=== PATIENT | male | born 1990 | race Caucasian/White ===

== ENCOUNTER 2022-05-05 18:45 | Emergency (ER) | payer MEDICAID ==
[~2022-05-05] VITALS: Ht 190.5 cm; Wt 113.4 kg
[2022-05-05] MEDS ORDERED: NACL 0.9% 1,000 ML IV ONE (19:00)
[2022-05-05] MEDS ORDERED: ACETAMINOPHEN 500 MG TABLET PO ONE (19:00)
[2022-05-05 19:05] VITALS: BP_SYST 6
--- NOTE | 2022-05-05 19:52 | NUR ---
Placed in room 4 . Placed on traffic monitor specialist, blood pressure machine and pulse oximeter. To gown for exam. Side rails up. Report given to Aureliano BARRON (lyle).
[2022-05-05 20:14] LABS: BASOPHILS # (AUTO) 0.1 K/uL (0.0-0.2); BASOPHILS % (AUTO) 0.7 % (0.0-2.0); EOSINOPHILS # (AUTO) 0.6 K/uL (0.0-0.4); EOSINOPHILS % (AUTO) 6.1 % (0.0-4.0); HEMATOCRIT 43.1 % (36-54); HEMOGLOBIN 14.9 g/dL (14.0-18.0); LYMPHOCYTES # (AUTO) 2.7 K/uL (1.0-5.5); MEAN CORPUSCULAR HEMOGLOBIN 29 pg (27-31); MEAN CORPUSCULAR HGB CONC 34 % (32-36); MEAN CORPUSCULAR VOLUME 85 fL (79.0-98.0); MONOCYTES # (AUTO) 0.8 K/uL (0.0-1.0); MONOCYTES % (AUTO) 7.5 % (1.7-9.3); NEUTROPHILS # (AUTO) 5.9 K/uL (1.8-7.7); NEUTROPHILS % (AUTO) 58.7 % (40.0-70.0); PLATELET COUNT (AUTO) 251 K/uL (130-430); RED BLOOD CELL COUNT(AUTO) 5.08 MIL/uL (4.2-6.2); RED CELL DISTRIBUTION WIDTH 13.6 % (9.0-15.0)
[2022-05-05 20:18] LABS: CALCIUM 8.9 mg/dL (8.4-11.0); CREATININE 1.17 mg/dL (0.55-1.30); POTASSIUM 3.6 mmol/L (3.5-5.1)
[2022-05-05 20:25] LABS: ALBUMIN 3.2 g/dL (3.4-4.8); TOTAL BILIRUBIN 0.6 mg/dL (0.0-1.0)
--- NOTE | 2022-05-05 20:28 | NUR ---
Pt to bed 4 at this time via EMS w/ c/o syncopal episode per bystander. Pt denies N/V/D, pt denies chest pain, pt denies SOB, PT respirations even and unlabored, Pt states he has blurry vision, pt denies LOC, pt placed on cardiac sonographer and pulse oximetry. Side rails up bed in low position, wheels locked. Pt AOx4. GCS 15.
--- NOTE | 2022-05-05 20:32 | NUR ---
Pt states "I smoked and snorted crystal meth yesterday morning".
--- NOTE | 2022-05-05 21:00 | NUR ---
MD at bedside speaking to patient regarding plan of care.
--- NOTE | 2022-05-05 21:09 | NUR ---
# 20 gauge angiocath placed to right AC. Use of asceptic technique. Opsite placed over site. Blood return noted. Blood for lab drawn from site. Flushed with 10 cc of normal saline. No evidence of infiltration noted. Patient tolerated well.
--- NOTE | 2022-05-05 21:11 | NUR ---
Pt given food and drink at this time
[2022-05-05] MEDS ORDERED: ACETAMINOPHEN 500 MG TABLET ONE (21:27)
--- NOTE | 2022-05-05 21:53 | NUR ---
Patient given written and verbal discharge instructions and verbalizes understanding. ER MD discussed with patient the results and treatment provided. Patient in stable condition. ID arm band removed. IV catheter removed intact and dressing applied, no active bleeding. Rx of NONE given. Patient educated on pain management and to follow up with PMD. Pain Scale 0/10. Opportunity for questions provided and answered. Medication side effect fact sheet provided.
--- NOTE | 2022-05-05 21:54 | NUR ---
Cookie, Grandmother, called at this time and stated she would be coming to knot picker cloth patient now.
[2022-05-05 21:55] VITALS: BP_SYST 137
== END 2022-05-05 21:54 | disposition home or self-care (01) ==
LOC: SED 18:45
DX: S00.03XA Contusion of scalp, initial encounter (principal); R55 Syncope and collapse; F12.90 Cannabis use, unspecified, uncomplicated; F15.10 Other stimulant abuse, uncomplicated; Z88.8 Allergy status to other drugs, medicaments and biological substances; X58.XXXA Exposure to other specified factors, initial encounter; Y93.89 Activity, other specified; Y92.89 Other specified places as the place of occurrence of the external cause; Y99.8 Other external cause status
CPT/HCPCS: 99285; 96360; 70450; 80053; 85025; 36415; 93005; 76376; J7030